=== PATIENT | male | born 1985 | race Caucasian/White ===

== ENCOUNTER 2023-04-26 12:01 | Inpatient (IN) ==
[2023-04-26] MEDS ORDERED: KETOROLAC TROMETHAMINE 15 MG/ML VIAL IV STA (12:18)
[2023-04-26] MEDS ORDERED: ONDANSETRON INJ 2 MG/ML 2 ML VIAL IV STA (12:18)
[2023-04-26] MEDS ORDERED: SODIUM CHLORIDE 0.9% 1,000 ML IV STA (12:18)
[2023-04-26] MEDS ORDERED: FAMOTIDINE 20MG IV PUSH 20 MG/5 ML SYR IV STA (12:28)
--- NOTE | 2023-04-26 12:28 | Emergency Department Note ---
Impression & Plan Acute upper abdominal pain, Acute cholecystitis, Vomiting, Leukocytosis, Gall stone ED Provider Note NAME: LAUREN [id number] MARIALUISA AGE: 37 SEX: M : 1985 ARRIVES VIA: Walk-In INFORMANT: [Patient] ED PROVIDER(S): [Vernon Larsen MD] CHIEF COMPLAINT: Abdominal pain HISTORY OF PRESENT ILLNESS: The patient is a 37-year-old male states that last night before he went to bed he began experiencing some pain in the upper back and then his upper abdomen. Patient vomited a few times. This morning, he woke up with the same pain and again was vomiting. The pain is worse in the right upper quadrant especially to take a breath. He has not had fever, cough or congestion. No urinary complaints or diarrhea. He went to the [facility] and was given a shot of Phenergan, he really has not had much relief. He was sent to the hospital for evaluation. He has no history of anything like this previous, he has never had any abdominal surgeries. He takes no medications. PMHx/PSHx/Social Hx: See Below PHYSICAL EXAM: GENERAL: Patient is in no acute distress. HEENT: No acute trauma, normocephalic atraumatic, mucous membranes moist, no nasal congestion. NECK: No stridor, no adenopathy, no meningismus, trachea is midline. LUNGS: Clear to auscultation bilaterally, no wheeze, no rhonchi, breath sounds equal. HEART: Without murmurs gallops or rubs, regular rate and rhythm. ABDOMEN: Soft, patient is tender diffusely but mostly in the right upper quadrant. There is some guarding in the right upper quadrant. No abdominal distention. EXTREMITIES: No cyanosis, full range of motion of all the joints without pain or difficulty. NEUROLOGIC: Oriented x 3, no acute motor or sensory deficits, no focal weakness. SKIN: No jaundice, no diaphoresis. Back: No flank discomfort to percussion. DIFFERENTIAL DIAGNOSIS: Biliary colic, acute cholecystitis, pancreatitis, renal colic, appendicitis, gastritis or ulcer, among others. EMERGENCY DEPARTMENT PROCEDURES: MEDICAL DECISION MAKING: There is a moderate leukocytosis, this could be consistent with infection. There was a normal hemoglobin and platelet count. No renal failure or significant electrolyte abnormality. Bilirubin was elevated at 1.7, the remaining liver enzymes were unremarkable. Lipase did not show any findings of pancreatitis. Urinalysis showed some dehydration, no infection. COVID test returned negative. ECG showed a normal sinus rhythm, no ischemia or dysrhythmia. Abdominal and pelvis CT suggested acute cholecystitis. Gallbladder ultrasound showed acute cholecystitis without rupture. There was a gallstone in the gallbladder neck. On exam, the patient was tender in the upper abdomen, especially in the right upper quadrant. The patient received IV saline, 2 L. He was given IV Zosyn for antibiotic coverage. He received IV Zofran and IV morphine. He was given IV Toradol and IV Pepcid. The patient does feel improved. He has findings of acute cholecystitis on his imaging. I did speak with general surgery, the patient is not in need of an emergent surgical procedure today. They recommended IV antibiotics, hydration, medical admission. I spoke with the patient and guards. I spoke with case management. The on-call hospitalist was consulted. Prior/Outside records/notes reviewed: None. ECG per my interpretation: Indication was upper abdominal pain. The ECG shows a normal sinus rhythm with a rate of 76. There is some baseline artifact. There is no ST elevation, no PVCs. The QTc is 459. Imaging/x-ray results per my interpretation: Chronic Medical/Social conditions affecting care: Incarceration. Care/Management discussed with: General surgery, Dr. Dave. Case management and the on-call hospitalist. Level of care consideration(s): After review of the information above and other included data: --I believe the patient requires escalation of care to admission DISPOSITION: Admission with surgical consult Past Med/Surg History Medical History No significant medical problems Social History Smoking Status: Never smoker Feels Safe at Home: Yes Allergies Allergies Allergy/AdvReac Type Severity Reaction Status Date / Time No Known Allergies Allergy Unverified 04/26/23 16:05 Home Meds Home Medications Medication Instructions Recorded Confirmed aluminum-mag hydroxide-simethicone 30 ml PO DAILY 04/26/23 04/26/23 200 mg-200 mg-20 mg/5 mL oral susp (Christine-Lanta) promethazine 25 mg/mL injection 25 mg IM DAILY 04/26/23 04/26/23 syringe Results & Data (ED) Vital Signs Vital Signs - 24 hr 04/26/23 12:03 04/26/23 12:38 04/26/23 12:38 Temperature 36.6 C Temperature Source Temporal Artery Scan Pulse Rate 85 65 Pulse Rate [Apical] 65 Respiratory Rate 20 20 20 Respiratory Effort / Characteristics Non-Labored Non-Labored Spontaneous Respiratory Depth Normal Normal Respiratory Pattern Regular Blood Pressure 130/82 Blood Pressure [Right Arm] 134/81 Blood Pressure Mean 98 Blood Pressure Mean [Right Arm] 98 Blood Pressure Position [Right Arm] Semi-fowlers Pulse Oximetry 98 98 98 Oxygen Delivery Method Room Air Room Air Room Air Sepsis Recent Fever Within 48 Hours No Sepsis New/Unexplained Change in Mental Status N/A Sepsis Action Taken by Nursing No Action Required 04/26/23 13:03 04/26/23 15:28 Temperature Temperature Source Pulse Rate 67 Pulse Rate [Apical] 66 Respiratory Rate 16 Respiratory Effort / Characteristics Respiratory Depth Respiratory Pattern Blood Pressure Blood Pressure [Right Arm] 122/80 Blood Pressure Mean Blood Pressure Mean [Right Arm] 94 Blood Pressure Position [Right Arm] Pulse Oximetry 98 Oxygen Delivery Method Sepsis Recent Fever Within 48 Hours Sepsis New/Unexplained Change in Mental Status Sepsis Action Taken by Halfway Medications Current Medication List: was personally reviewed by me Laboratory Data Attestation: I reviewed the patient's lab results. 04/26/23 12:30 04/26/23 12:30 Lab Results 04/26/23 04/26/23 04/26/23 Range/Units 12:30 13:57 16:17 WBC 14.92 H (4.8-10.8) K/ul RBC 5.07 (4.70-6.10) M/uL Hgb 14.7 (14.0-18.0) g/dl Hct 43.4 (42.0-52.0) % MCV 85.6 (80.0-100.0) fL MCH 29.0 (25.0-34.0) pg MCHC 33.9 (32.0-36.0) g/dL RDW Std Deviation 38.0 (36.4-46.3) fL RDW Coeff of Naomie 12.2 (11.5-14.5) % Plt Count 169 (130-400) K/uL MPV 10.6 (9.4-12.4) fL Immature Gran % (Auto) 0.4 % Neut % (Auto) 86.5 % Lymph % (Auto) 6.1 % Sanders % (Auto) 6.8 % Eos % (Auto) 0.1 % Baso % (Auto) 0.1 % Neut # (Auto) 12.90 H (1.40-6.50) K/uL Lymph # (Auto) 0.91 L (1.20-3.40) K/uL Sanders # (Auto) 1.02 H (0.11-0.59) K/uL Eos # (Auto) 0.01 (0.00-0.50) K/uL Baso # (Auto) 0.02 (0.00-0.20) K/uL Immature Gran # (Auto) 0.06 (0.01-0.20) K/uL Sodium 136 (136-145) mmol/L Potassium 3.8 (3.5-5.1) mmol/L Chloride 101 (98-107) mmol/L Carbon Dioxide 25 (21-32) mmol/L Anion Gap 10 (3-11) BUN 11 (6-23) mg/dl Creatinine 0.68 (0.6-1.4) mg/dl Est Cr Clr Drug Dosing 161.5 ml/min Est GFR ( Amer) 143.4 ml/min Est GFR (Non-Af Amer) 123.7 ml/min BUN/Creatinine Ratio 16.2 (10-20) Glucose 100 H (70-99(Fasting)) mg/dl Calcium 8.9 (8.6-10.3) mg/dl Total Bilirubin 1.7 H (0.2-1.0) mg/dl AST 27 (13-39) U/L ALT 15 (7-52) U/L Alkaline Phosphatase 65 (34-104) U/L Total Protein 7.1 (6.0-8.3) gm/dl Albumin 4.6 (3.4-5.0) gm/dl Globulin 2.5 (2.5-4.0) gm/dl Albumin/Globulin Ratio 1.8 (0.9-2) Lipase 13 (11-82) U/L Urine Color Yellow Urine Appearance Clear (Clear) Urine pH 6.0 (4.5-7.5) Ur Specific [place] 1.042 H (1.000-1.030) Urine Protein Negative (Negative) Urine Glucose (UA) Negative (Negative) Urine Ketones 4+ H (Negative) Urine Blood Negative (Negative) Urine Nitrite Negative (Negative) Urine Bilirubin Negative (Negative) Urine Urobilinogen Negative (Negative) Ur Leukocyte Esterase Negative (Negative) SARS-CoV-2, RNA, NAAT NEGATIVE (NEGATIVE) Administered Medications Discontinued Medications Sodium Chloride (Nss) 1,000 mls @ 999 mls/hr IV .Q1H1M STA Stop: 04/26/23 13:18 Last Infusion: 04/26/23 13:54 Dose: Infused Documented By: Admin: 04/26/23 12:32 Dose: 999 mls/hr Documented By: AB Famotidine (Pepcid 20mg Iv Push) 20 mg in 5 mls @ 2.5 mls/min IV NOW STA Stop: 04/26/23 12:29 Last Admin: 04/26/23 12:32 Dose: 2.5 mls/min Documented By: AB Piperacillin Sod/Tazobactam Sod (Zosyn) 4.5 gm in 120 mls @ 240 mls/hr IV NOW ONE Stop: 04/26/23 14:02 Last Admin: 04/26/23 13:58 Dose: 240 mls/hr Documented By: AB Sodium Chloride (Nss) 1,000 mls @ 999 mls/hr IV .Q1H1M ONE Stop: 04/26/23 15:26 Last Admin: 04/26/23 14:58 Dose: 999 mls/hr Documented By: CHAKA Ioversol (Optiray 320 500ml) 90 ml IV ONCE ONE Stop: 04/26/23 13:29 Last Admin: 04/26/23 13:29 Dose: 90 ml Documented By: FRANCK Ketorolac Tromethamine (Ketorolac Tromethamine 15 Mg/Ml Vial) 15 mg IV NOW STA Stop: 04/26/23 12:19 Last Admin: 04/26/23 12:32 Dose: 15 mg Documented By: Morphine Sulfate (Morphine Sulfate 2 Mg/Ml Carp) 2 mg IV NOW STA Stop: 04/26/23 14:27 Last Admin: 04/26/23 14:57 Dose: 2 mg Documented By: CHAKA Ondansetron HCl (Ondansetron Inj 2 Mg/Ml 2 Ml Vial) 4 mg IV NOW STA Stop: 04/26/23 12:19 Last Admin: 04/26/23 12:32 Dose: 4 mg Documented By: AB Imaging Data Radiologist's Impression: Abdomen/Pelvis CT 04/26/23 12:19 CT abd pelvis IV con only CLINICAL HISTORY: rlq pain TECHNIQUE: Helical axial images of the abdomen and pelvis were obtained and displayed. Automated dose lowering techniques and/or adjustment according to patient size were utilized for this exam. This exam was performed with intravenous contrast. CT DOSE: 963.05 mGy.cm COMPARISON: None available at the time of this dictation. FINDINGS: Lower chest: No acute abnormality. Liver: Unremarkable. No focal lesions are seen. Gallbladder and biliary tree: Prominence of the gallbladder wall with hyperdense gallbladder contents. The gallbladder wall appears dilated but difficult to measure. There is a 11 x 18 mm nodular density adjacent to the gallbladder. No intra- or extrahepatic biliary ductal dilation. Pancreas: Unremarkable, no focal lesions. Spleen: Splenule is incidentally noted. Adrenals: Unremarkable. Kidneys and ureters: Unremarkable. Bladder: Unremarkable. Reproductive organs: Prostatic calcifications are seen which may represent prior hemorrhage or granulomatous disease. Bowel: The appendix is not well-visualized, however no secondary signs for appendicitis are seen. Lymph nodes Retroperitoneal: Unremarkable. Pelvic: Unremarkable. Mesenteric: Unremarkable. Peritoneum: Normal. Vessels: Unremarkable. Abdominal wall: Unremarkable. Bones: Unremarkable. IMPRESSION: Findings are concerning for acute cholecystitis, possibly acalculous cholecystitis with gallbladder sludge. Attention on gallbladder ultrasound which has already been ordered. Adjacent nodular density may represent a pema hepatis lymph node, dropped stone cannot be entirely excluded. ACT 112: Negative or not required by law. Electronically signed by: Goyo Leach M.D. 04/26/2023 2:13 PM Gallbladder Ultrasound 04/26/23 12:26 US gallbladder CLINICAL HISTORY: ruq pain TECHNIQUE: Multiple real-time sonographic images of the right upper quadrant were obtained. Comparison: Comparison is made to CT abdomen 04/26/2023 FINDINGS: The liver is diffusely homogenous with normal contour and echogenicity. No focal mass lesions are seen. No intrahepatic ductal dilatation is seen. A stone is in the gallbladder neck measuring 2.6 cm. There is prominent gallbladder heterogeneous contents likely representing sludge. Gallbladder wall measures 9 mm. A sonographic Livingston's sign was elicited by the hay rake operator. The common duct measures 0.4 cm in diameter at the level of the hepatic artery. The visualized portions of the pancreas appear normal. The right kidney shows normal echogenicity, cortical thickness and renal contour. The right kidney shows no evidence of hydronephrosis or mass. No ascites or free fluid is seen in Gaming's pouch. IMPRESSION: Findings compatible with acute cholecystitis with a stone in the gallbladder neck and gallbladder sludge. No gallbladder perforation was ultrasonically visualized. ACT 112: Negative or not required by law. Electronically signed by: Goyo Leach M.D. 04/26/2023 3:36 PM Discharge Plan Visit Data Chief Complaint: Abdominal Pain Stated Complaint: ABD PAIN ED Provider: Vernon Larsen Discharge Problem: Acute upper abdominal pain, Acute cholecystitis, Vomiting, Leukocytosis, Gall stone Patient Disposition: Admitted As Inpatient Condition: Fair Forms Stand Alone Forms: [facility] [place] [employer] Prescriptions Prescriptions: No Action alum-mag hydroxide-simeth [Christine-Lanta] 200-200-20 mg/5 mL Suspension 30 ml PO DAILY Rx Instructions: administer between meals and at bedtime promethazine 25 mg/mL Syringe 25 mg IM DAILY Referrals Referrals: PCP,NO [Physician] - Discharge Problem: Vomiting Qualifiers: Vomiting type: unspecified Nausea presence: with nausea Qualified Code(s): R 11.2 - Nausea with vomiting, unspecified Leukocytosis Qualifiers: Leukocytosis type: unspecified Qualified Code(s): D72.829 - Elevated white blood cell count, unspecified Gall stone Qualifiers: Cholecystitis presence: with cholecystitis Cholecystitis acuity: acute Biliary obstruction: without biliary obstruction Qualified Code(s): K80.00 - Calculus of gallbladder with acute cholecystitis without obstruction
[2023-04-26 13:09] LABS: Basophils # (auto) 0.02 K/uL (0.00-0.20); Basophils % (auto) 0.1 %; Eosinophils # (auto) 0.01 K/uL (0.00-0.50); Eosinophils % (auto) 0.1 %; Hematocrit (blood only) 43.4 % (42.0-52.0); Hemoglobin 14.7 g/dl (14.0-18.0); Immature Granulocytes # (auto) 0.06 K/uL (0.01-0.20); Immature Granulocytes % (auto) 0.4 %; Lymphocytes # (auto) 0.91 K/uL (1.20-3.40); Lymphocytes % (auto) 6.1 %; Mean Corpuscular Hgb Conc 33.9 g/dL (32.0-36.0); Mean Corpuscular Volume 85.6 fL (80.0-100.0); Mean Platelet Volume 10.6 fL (9.4-12.4); Monocytes # (auto) 1.02 K/uL (0.11-0.59); Monocytes % (auto) 6.8 %; Neutrophils % (auto) 86.5 %; Platelet Count 169 K/uL (130-400); RDW Coefficient of Variation 12.2 % (11.5-14.5); Red Blood Count 5.07 M/uL (4.70-6.10); White Blood Count 14.92 K/ul (4.8-10.8)
[2023-04-26 13:13] LABS: Albumin Globulin Ratio 1.8 (0.9-2); Albumin Level 4.6 gm/dl (3.4-5.0); BUN Creatinine Ratio 16.2 (10-20); Bilirubin,Total 1.7 mg/dl (0.2-1.0); Calcium 8.9 mg/dl (8.6-10.3); Creatinine Clr Calc Pharmacy 161.5 ml/min; Est GFR (African American) 143.4 ml/min; Est GFR (Non-African American) 123.7 ml/min; Globulin 2.5 gm/dl (2.5-4.0); Potassium 3.8 mmol/L (3.5-5.1); Total Protein 7.1 gm/dl (6.0-8.3)
[2023-04-26] MEDS ORDERED: OPTIRAY 320 500ml IV ONE (13:28)
[2023-04-26] MEDS ORDERED: PIPERACILLIN/TAZOBACTAM 4.5 GM/120 ML BAG IV ONE (13:33)
[2023-04-26 14:13] LABS: Appearance Urine Clear (Clear); Bilirubin Urine Negative (Negative); Blood Urine Negative (Negative); Color Urine Yellow; Glucose Urine UA Negative (Negative); Ketones Urine 4+ (Negative); Leukocyte Esterase Urine Negative (Negative); Nitrite Urine Negative (Negative); Protein Urine Negative (Negative); Specific Gravity Urine 1.042 (1.000-1.030); Urobilinogen Urine Negative (Negative)
--- NOTE | 2023-04-26 14:15 | CT Scan Report ---
CT abd pelvis IV con only CLINICAL HISTORY: rlq pain TECHNIQUE: Helical axial images of the abdomen and pelvis were obtained and displayed. Automated dose lowering techniques and/or adjustment according to patient size were utilized for this exam. This e xam was performed with intravenous contrast. CT DOSE: 963.05 mGy.cm COMPARISON: None available at the time of this dictation. FINDINGS: Lower chest: No acute abnormality. Liver: Unremarkable. No focal lesions are seen. Gallbladder and biliary tree: Prominence of the gallbladder wall with hyperdense gallbladder contents . The gallbladder wall appears dilated but difficult to measure. There is a 11 x 18 mm nodular densit y adjacent to the gallbladder. No intra- or extrahepatic biliary ductal dilation. Pancreas: Unremarkable, no focal lesions. Spleen: Splenule is incidentally noted. Adrenals: Unremarkable. Kidneys and ureters: Unremarkable. Bladder: Unremarkable. Reproductive organs: Prostatic calcifications are seen which may represent prior hemorrhage or granul omatous disease. Bowel: The appendix is not well-visualized, however no secondary signs for appendicitis are seen. Lymph nodes Retroperitoneal: Unremarkable. Pelvic: Unremarkable. Mesenteric: Unremarkable. Peritoneum: Normal. Vessels: Unremarkable. Abdominal wall: Unremarkable. Bones: Unremarkable. IMPRESSION: Findings are concerning for acute cholecystitis, possibly acalculous cholecystitis with gallbladder s ludge. Attention on gallbladder ultrasound which has already been ordered. Adjacent nodular density m ay represent a pema hepatis lymph node, dropped stone cannot be entirely excluded. ACT 112: Negative or not required by law. Electronically signed by: Goyo Leach M.D. 04/26/2023 2:13 PM
[2023-04-26] MEDS ORDERED: SODIUM CHLORIDE 0.9% 1,000 ML IV ONE (14:26)
[2023-04-26] MEDS ORDERED: MoRPHine SULFATE 2 MG/ML CARP IV PRN (14:26)
[2023-04-26] MEDS ORDERED: MoRPHine SULFATE 2 MG/ML CARP IV STA (14:26)
--- NOTE | 2023-04-26 15:38 | Ultrasound Report ---
US gallbladder CLINICAL HISTORY: ruq pain TECHNIQUE: Multiple real-time sonographic images of the right upper quadrant were obtained. Comparison: Comparison is made to CT abdomen 04/26/2023 FINDINGS: The liver is diffusely homogenous with normal contour and echogenicity. No focal mass lesions are see n. No intrahepatic ductal dilatation is seen. A stone is in the gallbladder neck measuring 2.6 cm . There is prominent gallbladder heterogeneous contents likely representing sludge. Gallbladder wall measures 9 mm. A sonographic Livingston's sign was elicited by the financial advisor trainee. The common duct measure s 0.4 cm in diameter at the level of the hepatic artery. The visualized portions of the pancreas nelsy ear normal. The right kidney shows normal echogenicity, cortical thickness and renal contour. The right kidney sh ows no evidence of hydronephrosis or mass. No ascites or free fluid is seen in Gaming's pouch. IMPRESSION: Findings compatible with acute cholecystitis with a stone in the gallbladder neck and gallbladder slu dge. No gallbladder perforation was ultrasonically visualized. ACT 112: Negative or not required by law. Electronically signed by: Goyo Leach M.D. 04/26/2023 3:36 PM
--- NOTE | 2023-04-26 16:04 | History & Physical Report ---
Date of Service April 26, 2023 Assessment & Plan (1) Acute cholecystitis: Plan: Patient presented with right upper quadrant abdominal pain, nausea and vomiting for 1 day Afebrile, normotensive and saturating well on room air CBC remarkable for leukocytosis Total bilirubin elevated to 1.7, LFTs within normal limits. BUN/creatinine within normal limits Urine positive for ketones CT abdomen pelvis personally reviewed; findings concerning for acute cholec ystitis. Right upper quadrant shows acute cholecystitis with a gallstone in gallbladder neck and gallbladder sludge Discussion was done with on-call surgeon; plan to be admitted to medical service with possible surgery tomorrow AM. Admit to medical floor We will start on D5 with normal saline with potassium. Started on ceftriaxone and Flagyl Pain control with IV Tylenol, oxycodone and morphine N.p.o. from midnight, clear liquid diet for now RCRI-0, class I risks. Patient is at average risk for postop complications. EKG as preop evaluation. DVT prophylaxisSCDs Full code Time spent evaluating patient, direct bedside care, chart review, placing orders, interpretation of diagnostic studies, discussion with consultants, patient, and family members, as well as other required patient management activities is 60 minutes Please note the above document was generated using voice recognition software. It may contain grammatical, syntax or spelling errors. Any formal questions or concerns about the content, text or information contained within the body of this dictation should be directly addressed to the provider for clarification History of Present Illness Chief Complaint: Upper quadrant abdominal pain for 1 day Primary Care Provider: THUAN Kelly Patient is a 37-year-old male with no known past medical history presented to the ED with right upper quadrant abdominal pain. Patient also reports nausea and vomiting for several times since then. Patient denies fever, chills, chest pain or shortness of breath. No prior history of abdominal surgeries or previous hospitalization. On presentation to the ED, patient was afebrile, normotensive and saturating well on room air CBC remarkable for leukocytosis Total bilirubin elevated to 1.7, LFTs within normal limits. BUN/creatinine within normal limits Urine positive for ketones CT abdomen pelvis personally reviewed; findings concerning for acute cholecystitis. Right upper quadrant shows acute cholecystitis with a gallstone in gallbladder neck and gallbladder sludge Discussion was done with on-call surgeon; plan to be admitted to medical service with possible surgery tomorrow AM. Past medical history; none Past surgical history; tendon repair on right hand. No abdominal medical history history Social history; ex-smoker, does not drink Family history; no pertinent family history Allergies Allergy/AdvReac Type Severity Reaction Status Date / Time No Known Allergies Allergy Unverified 04/26/23 16:05 Home Medications Medication Instructions Recorded Confirmed Type aluminum-mag hydroxide-simethicone 30 ml PO DAILY 04/26/23 04/26/23 History 200 mg-200 mg-20 mg/5 mL oral susp (Christine-Lanta) promethazine 25 mg/mL injection 25 mg IM DAILY 04/26/23 04/26/23 History syringe Past Med/Surg History Social History Smoking Status: Never smoker Feels Safe at Home: Yes Review of Systems Review of Systems: All systems reviewed & are unremarkable except as noted in Subjective Physical Exam Physical Exam: Constitutional: Alert oriented x3; not in distress Respiratory: normal respiratory effort, lungs clear to auscultation, no wheeze, rales, rhonchi. Normal insp/exp effort, no accessory muscle use Cardiovascular: RRR, no murmur, no edema Vessels: no JVD or carotid bruit Chest: normal inspection of chest Abdomen: Right upper quadrant tenderness present. Livingston sign present Musculoskeletal: no cyanosis or clubbing, extremities motor strength 5/5 Skin: no rashes, warm and dry normal turgor Neurologic: PERRL, EOMI, accommodation nl, no face palsy, no dysarthria CN's II- XI intact bilaterally and moves all extremities Psychiatric: A+Ox3, euthymic affect Results & Data Results & Data Vital Signs (Past 12 Hours) Vital Signs Temp Pulse Pulse Resp BP BP Pulse Ox 04/26/23 15:28 66 16 122/80 98 04/26/23 13:03 67 04/26/23 12:38 65 20 98 04/26/23 12:38 65 20 134/81 98 04/26/23 12:03 36.6 C 85 20 130/82 98 O2 Del Method 04/26/23 15:28 04/26/23 13:03 04/26/23 12:38 Room Air 04/26/23 12:38 Room Air 04/26/23 12:03 Room Air Laboratory Results Laboratory Results WBC 14.92 K/ul (4.8-10.8) H 04/26/23 12:30 RBC 5.07 M/uL (4.70-6.10) 04/26/23 12:30 Hgb 14.7 g/dl (14.0-18.0) 04/26/23 12:30 Hct 43.4 % (42.0-52.0) 04/26/23 12:30 MCV 85.6 fL (80.0-100.0) 04/26/23 12: MCH 29.0 pg (25.0-34.0) 04/26/23 12:30 MCHC 33.9 g/dL (32.0-36.0) 04/26/23 12:30 RDW Std Deviation 38.0 fL (36.4-46.3) 04/26/23 12:30 RDW Coeff of Naomie 12.2 % (11.5-14.5) 04/26/23 12: Plt Count 169 K/uL (130-400) 04/26/23 12: MPV 10.6 fL (9.4-12.4) 04/26/23 12:30 Immature Gran % (Auto) 0.4 % 04/26/23 12:30 Neut % (Auto) 86.5 % 04/26/23 12:30 Lymph % (Auto) 6.1 % 04/26/23 12:30 [place] % (Auto) 6.8 % 04/26/23 12:30 Eos % (Auto) 0.1 % 04/26/23 12:30 Baso % (Auto) 0.1 % 04/26/23 12:30 Neut # (Auto) 12.90 K/uL (1.40-6.50) H 04/26/23 12:30 Lymph # (Auto) 0.91 K/uL (1.20-3.40) L 04/26/23 12:30 [place] # (Auto) 1.02 K/uL (0.11-0.59) H 04/26/23 12:30 Eos # (Auto) 0.01 K/uL (0.00-0.50) 04/26/23 12:30 Baso # (Auto) 0.02 K/uL (0.00-0.20) 04/26/23 12:30 Immature Gran # (Auto) 0.06 K/uL (0.01-0.20) 04/26/23 12:30 Sodium 136 mmol/L (136-145) 04/26/23 12:30 Potassium 3.8 mmol/L (3.5-5.1) 04/26/23 12:30 Chloride 101 mmol/L (98-107) 04/26/23 12:30 Carbon Dioxide 25 mmol/L (21-32) 04/26/23 12:30 Anion Gap 10 (3-11) 04/26/23 12:30 BUN 11 mg/dl (6-23) 04/26/23 12:30 Creatinine 0.68 mg/dl (0.6-1.4) 04/26/23 12:30 Est Cr Clr Drug Dosing 161.5 ml/min 04/26/23 12:30 Est GFR ( Amer) 143.4 ml/min 04/26/23 12:30 Est GFR (Non-Af Amer) 123.7 ml/min 04/26/23 12:30 BUN/Creatinine Ratio 16.2 (10-20) 04/26/23 12:30 Glucose 100 mg/dl (70-99(Fasting)) H 04/26/23 12:30 Calcium 8.9 mg/dl (8.6-10.3) 04/26/23 12:30 Total Bilirubin 1.7 mg/dl (0.2-1.0) H 04/26/23 12:30 AST 27 U/L (13-39) 04/26/23 12:30 ALT 15 U/L (7-52) 04/26/23 12:30 Alkaline Phosphatase 65 U/L (34-104) 04/26/23 12:30 Total Protein 7.1 gm/dl (6.0-8.3) 04/26/23 12:30 Albumin 4.6 gm/dl (3.4-5.0) 04/26/23 12:30 Globulin 2.5 gm/dl (2.5-4.0) 04/26/23 12:30 Albumin/Globulin Ratio 1.8 (0.9-2) 04/26/23 12:30 Lipase 13 U/L (11-82) 04/26/23 12:30 Urine Color Yellow 04/26/23 13:57 Urine Appearance Clear (Clear) 04/26/23 13:57 Urine pH 6.0 (4.5-7.5) 04/26/23 13:57 Ur Specific [place] 1.042 (1.000-1.030) H 04/26/23 13:57 Urine Protein Negative (Negative) 04/26/23 13:57 Urine Glucose (UA) Negative (Negative) 04/26/23 13:57 Urine Ketones 4+ (Negative) H 04/26/23 13:57 Urine Blood Negative (Negative) 04/26/23 13:57 Urine Nitrite Negative (Negative) 04/26/23 13:57 Urine Bilirubin Negative (Negative) 04/26/23 13:57 Urine Urobilinogen Negative (Negative) 04/26/23 13:57 Ur Leukocyte Esterase Negative (Negative) 04/26/23 13:57 Impressions Abdomen/Pelvis CT 04/26/23 12:19 CT abd pelvis IV con only CLINICAL HISTORY: rlq pain TECHNIQUE: Helical axial images of the abdomen and pelvis were obtained and displayed. Automated dose lowering techniques and/or adjustment according to patient size were utilized for this exam. This exam was performed with intravenous contrast. CT DOSE: 963.05 mGy.cm COMPARISON: None available at the time of this dictation. FINDINGS: Lower chest: No acute abnormality. Liver: Unremarkable. No focal lesions are seen. Gallbladder and biliary tree: Prominence of the gallbladder wall with hyperdense gallbladder contents. The gallbladder wall appears dilated but difficult to measure. There is a 11 x 18 mm nodular density adjacent to the gallbladder. No intra- or extrahepatic biliary ductal dilation. Pancreas: Unremarkable, no focal lesions. Spleen: Splenule is incidentally noted. Adrenals: Unremarkable. Kidneys and ureters: Unremarkable. Bladder: Unremarkable. Reproductive organs: Prostatic calcifications are seen which may represent prior hemorrhage or granulomatous disease. Bowel: The appendix is not well-visualized, however no secondary signs for appendicitis are seen. Lymph nodes Retroperitoneal: Unremarkable. Pelvic: Unremarkable. Mesenteric: Unremarkable. Peritoneum: Normal. Vessels: Unremarkable. Abdominal wall: Unremarkable. Bones: Unremarkable. IMPRESSION: Findings are concerning for acute cholecystitis, possibly acalculous cholecystitis with gallbladder sludge. Attention on gallbladder ultrasound which has already been ordered. Adjacent nodular density may represent a pema hepatis lymph node, dropped stone cannot be entirely excluded. ACT 112: Negative or not required by law. Electronically signed by: Goyo Leach M.D. 04/26/2023 2:13 PM Gallbladder Ultrasound 04/26/23 12:26 US gallbladder CLINICAL HISTORY: ruq pain TECHNIQUE: Multiple real-time sonographic images of the right upper quadrant were obtained. Comparison: Comparison is made to CT abdomen 04/26/2023 FINDINGS: The liver is diffusely homogenous with normal contour and echogenicity. No focal mass lesions are seen. No intrahepatic ductal dilatation is seen. A stone is in the gallbladder neck measuring 2.6 cm. There is prominent gallbladder heterogeneous contents likely representing sludge. Gallbladder wall measures 9 mm. A sonographic Livingston's sign was elicited by the campus recruiting coordinator. The common duct measures 0.4 cm in diameter at the level of the hepatic artery. The visualized portions of the pancreas appear normal. The right kidney shows normal echogenicity, cortical thickness and renal contour. The right kidney shows no evidence of hydronephrosis or mass. No ascites or free fluid is seen in Gaming's pouch. IMPRESSION: Findings compatible with acute cholecystitis with a stone in the gallbladder neck and gallbladder sludge. No gallbladder perforation was ultrasonically visualized. ACT 112: Negative or not required by law. Electronically signed by: Goyo Leach M.D. 04/26/2023 3:36 PM
[2023-04-26] MEDS ORDERED: ACETAMINOPHEN 1,000 MG/100 ML VIAL IV PRN (18:07)
[2023-04-26] MEDS: metroNIDAZOLE 500 MG/100 ML BAG IV SCH (18:36)
[2023-04-26] MEDS: cefTRIAXone SODIUM 2,000 MG in DEXTROSE 5 % MINI-B 50 ML IV SCH (18:42)
[2023-04-26] MEDS: D5NSS + 20MEQ KCL 20 MEQ/1,000 ML BAG IV SCH (19:24)
[2023-04-26] MEDS: oxyCODONE HCL IR 5 MG TAB (IMMEDIATE RELEASE) PO PRN (20:08)
--- NOTE | 2023-04-26 20:22 | Surgery Consultation ---
Date of Consultation April 26, 2023 Assessment & Plan (1) Acute cholecystitis: Patient has been admitted on the hospital service. From surgical perspective we recommend proceeding as follows: Provide analgesics Provide antiemetics The patient has been started on antibiotics in the form of Rocephin and Flagyl which should continue IV fluids to be provided for hydration The patient may have clear liquids this evening and he will be n.p.o. after midnight We have tentatively planned for the patient to undergo a cholecystectomy with Dr. Dave on 04/27/2023, but this procedure will be pending availability of the OR. We will follow serial labs Additional recommendations be forthcoming based on operative findings and the patient's postoperative recovery thereafter Utilize SCDs only for DVT prevention, no chemical means due to planned surgery Supervising Physician Co-Signing Physician Notes d/w Henri Santo, labs and imaging reviewed, agree with above. 37 y/o incarcerated male with cholecystitis, admitted to medicine. given degree of inflammation, will attempt surgery tomorrow, but if no space available will wait to Sunday. History of Present Illness Reason for Consultation: Cholecystitis Attending Physician: Kemal Siddiqi MD History of Present Illness This is a 37-year-old male who is currently incarcerated. The patient notes that he presented to the emergency department today secondary to abdominal pain in the right upper quadrant. He notes the pain has been present for approximately 24 hours and was unrelated to meals. He notes that the pain does not radiate. He notes that the pain is improved with medicines administered in the emergency department and it is worse with deep breaths. Patient says he has never had pain like this before and specifically [place] any postprandial pain in the past several weeks to months. With his symptomatology he has had nausea and vomiting and a low-grade temperature of 99.6. He has never had any abdominal surgeries in the past. I question the patient on activities of daily living and past medical history. He notes that he does not get chest pain or shortness of breath with his typical daily activities. He also notes he is a non-smoker and has no family history of coronary artery disease. Since arrival to the hospital patient has had labs and imaging which) reviewed. CT scan of the abdomen pelvis showed findings that were concerning for acute cholecystitis. Patient was noted to have prominence of the gallbladder with hyperdense material within the gallbladder. The gallbladder wall did appear dilated. There is an 11 x 18 mm nodular density adjacent to the gallbladder with no biliary ductal dilatation. This nodular density was felt to potentially represent a pema hepatis lymph node. A gallbladder ultrasound was ultimately performed that showed findings compatible with acute cholecystitis as the gallbladder wall was thickened at 9 mm. There is no intrahepatic biliary ductal dilatation. There is a gallstone noted in the gallbladder neck measuring 2.6 cm. Labs include a CBC her white blood cell count was elevated at 14.9. Hemoglobin and hematocrit along with the platelet count were normal. Chemistry profile showed sodium and potassium along with the BUN and creatinine were normal. Patient's bilirubin is elevated at 1.7, but his transaminases, alkaline phosphatase, and lipase were nonelevated. Urinalysis was not indicative of infection. An MRSA nasal swab was negative. A COVID test was negative. At the time of my interview the patient was resting comfortably in bed and he was in no distress. Concerning past medical history he denies any medical problems Concerning past surgical history he denies any prior surgeries Concerning social history he is a non-smoker Concerning family history he denies family history of coronary artery disease Allergies Allergy/AdvReac Type Severity Reaction Status Date / Time No Known Allergies Allergy Unverified 04/26/23 16:05 Home Medications Medication Instructions Recorded Confirmed Type aluminum-mag hydroxide-simethicone 30 ml PO DAILY 04/26/23 04/26/23 History 200 mg-200 mg-20 mg/5 mL oral susp (Christine-Lanta) promethazine 25 mg/mL injection 25 mg IM DAILY 04/26/23 04/26/23 History syringe Patient History Medical History No significant medical problems Social History Smoking Status: Never smoker Hx Alcohol Use: No Hx Substance Use: No Preferred Language: Amharic [employer] Required: No Beliefs That Will Affect Care: None Current Living Situation Comment: inmate Feels Safe at Home: Yes Review of Systems Constitutional: + fever; no chills Ear, Nose, Mouth, Throat: no hearing loss Respiratory: no cough and no dyspnea Cardiovascular: no chest pain Gastrointestinal: as per Subjective / HPI Genitourinary: no dysuria Musculoskeletal: no back pain Integumentary: no rash Neurologic: no localized weakness Physical Exam Constitutional: WD/WN, vitals as above Eyes: + anicteric sclerae ENMT: Sublingual jaundice is absent Neck: trachea midline Respiratory: normal respiratory effort; no respiratory distress and no labored breathing Cardiovascular: Rate/Rhythm: regular rate and regular rhythm Gastrointestinal (Abdomen): Abdomen is soft and nondistended. There is no rebound tenderness or guarding but the patient did have pain with palpation in the right upper quadrant with a positive [place] sign. Musculoskeletal: No calf tenderness Skin: no rashes Neurologic: moves all extremities Psychiatric: A+Ox3, euthymic affect Results & Data Vital Signs (Past 12 Hours) Vital Signs Temp Pulse Pulse Pulse Resp BP BP 04/26/23 18:18 37.4 C 80 18 129/71 04/26/23 17:26 79 04/26/23 15:28 66 16 122/80 04/26/23 13:03 67 04/26/23 12:38 65 20 04/26/23 12:38 65 20 134/81 04/26/23 12:03 36.6 C 85 20 130/82 Pulse Ox O2 Del Method 04/26/23 18:18 98 Room Air 04/26/23 17:26 04/26/23 15:28 98 04/26/23 13:03 04/26/23 12:38 98 Room Air 04/26/23 12:38 98 Room Air 04/26/23 12:03 98 Room Air PG Care Time/CCT Total # of Minutes Spent Total Time Spent with Patient: Total time spent is greater than 50% in coordination of care (as documented) at patient's floor/unit and/or counseling patient: Coding Level of Care Code 50328 IN/OBS CONSULT LVL 5,80M Diagnoses Acute cholecystitis K81.0
[2023-04-26] MEDS: ONDANSETRON INJ 2 MG/ML 2 ML VIAL IV PRN (21:24)
[2023-04-26] MEDS: MoRPHine SULFATE 2 MG/ML CARP IV PRN (21:24)
[2023-04-27] MEDS: metroNIDAZOLE 500 MG/100 ML BAG IV SCH ×3 (02:06→19:12)
[2023-04-27] MEDS: oxyCODONE HCL IR 5 MG TAB (IMMEDIATE RELEASE) PO PRN (02:08)
[2023-04-27] MEDS: D5NSS + 20MEQ KCL 20 MEQ/1,000 ML BAG IV SCH ×2 (05:49→18:38)
[2023-04-27] MEDS: ONDANSETRON INJ 2 MG/ML 2 ML VIAL IV PRN (06:07)
[2023-04-27] MEDS: MoRPHine SULFATE 2 MG/ML CARP IV PRN (06:07)
--- NOTE | 2023-04-27 06:17 | Surgery Progress Note ---
Date of Service April 27, 2023 Assessment & Plan (1) Acute cholecystitis: Plan: Patient has been admitted on the hospital service. From surgical perspective we recommend proceeding as follows: Continue analgesics Continue antiemetics Continue antibiotics in the form of Rocephin and Flagyl Continue IV fluids N.p.o. status has been implemented at midnight last night which should continue Check repeat labs when available The patient has been added to the OR schedule for today with Dr. Dave for a cholecystectomy. Definite plan for surgery will depend upon availability of the OR space/staff Additional recommendations be forthcoming based on operative findings and the patient's postoperative recovery thereafter Utilize SCDs only for DVT prevention, no chemical means due to planned surgery Admission and Anticipated Discharge Date Admission Date: April 26, 2023 Supervising Physician Co-Signing Physician Notes Patient seen and examined, labs and imaging reviewed, agree with above. 37-year-old incarcerated male admitted with cholecystitis. Feels little better than upon admission but still has right upper quadrant pain. On exam he is currently afebrile with a slightly diaphoretic, with stable vitals. His abdomen is soft, tender to palpation right upper quadrant with positive Livingston's. WBC slightly down. LFTs slightly up, may be secondary to significant cholecystitis. plan for robotic assisted laparoscopic cholecystectomy with possible cholangiogram risks discussed to include but not limited to bleeding, infection, retained stone, bile leak, open surgery, damage to surrounding structures including bile duct, need for future or more extensive surgery, failure to treat symptoms, and risks of anesthesia. Subjective Patient is currently resting in bed. He denies any fevers, shakes, or chills. No nausea or vomiting noted. The patient continues to have pain in the right upper quadrant of his abdomen. Physical Exam Gastrointestinal (Abdomen): Abdomen is soft, nonrigid, nondistended. Patient continues to have pain with palpation in the right upper quadrant. Results & Data Vital Signs (Past 12 Hours) Vital Signs Temp Pulse Resp BP Pulse Ox O2 Del Method 04/26/23 22:36 37.2 C 85 18 118/67 94 Room Air 04/26/23 18:18 37.4 C 80 18 129/71 98 Room Air PG Care Time/CCT Total # of Minutes Spent Total Time Spent with Patient: Total time spent is greater than 50% in coordination of care (as documented) at patient's floor/unit and/or counseling patient: Coding Level of Care Code 44276 SUB INP/OBS CARE Diagnoses Acute cholecystitis K81.0
[2023-04-27 07:00] LABS: Basophils # (auto) 0.02 K/uL (0.00-0.20); Basophils % (auto) 0.2 %; Eosinophils # (auto) 0.02 K/uL (0.00-0.50); Eosinophils % (auto) 0.2 %; Hematocrit (blood only) 41.5 % (42.0-52.0); Immature Granulocytes # (auto) 0.06 K/uL (0.01-0.20); Immature Granulocytes % (auto) 0.5 %; Lymphocytes % (auto) 6.8 %; Mean Corpuscular Hemoglobin 28.9 pg (25.0-34.0); Mean Corpuscular Hgb Conc 33.7 g/dL (32.0-36.0); Mean Corpuscular Volume 85.7 fL (80.0-100.0); Mean Platelet Volume 10.7 fL (9.4-12.4); Monocytes # (auto) 1.16 K/uL (0.11-0.59); Monocytes % (auto) 8.8 %; Neutrophils # (auto) 11.05 K/uL (1.40-6.50); Neutrophils % (auto) 83.5 %; Platelet Count 149 K/uL (130-400); RDW Coefficient of Variation 12.5 % (11.5-14.5); Red Blood Count 4.84 M/uL (4.70-6.10); White Blood Count 13.21 K/ul (4.8-10.8)
[2023-04-27 07:14] LABS: Bilirubin Direct 0.6 mg/dl (0-0.2)
[2023-04-27 07:19] LABS: Albumin Globulin Ratio 1.6 (0.9-2); Albumin Level 3.7 gm/dl (3.4-5.0); BUN Creatinine Ratio 13.4 (10-20); Bilirubin,Total 2.1 mg/dl (0.2-1.0); Calcium 8.3 mg/dl (8.6-10.3); Creatinine Clr Calc Pharmacy 163.9 ml/min; Est GFR (African American) 144.3 ml/min; Est GFR (Non-African American) 124.5 ml/min; Globulin 2.3 gm/dl (2.5-4.0); Potassium 4.1 mmol/L (3.5-5.1)
[2023-04-27 07:27] LABS: INR 1.2 (0.9-1.1); Prothrombin Time 13.2 Seconds (9.0-12.0)
[2023-04-27] MEDS ORDERED: INDOCYANINE GREEN 25 MG VIAL INJ ONE (07:31)
--- NOTE | 2023-04-27 08:17 | Anesthesiology Consultation ---
Date of Service April 27, 2023 Assessment & Plan Chart Review Chart Review: Acceptable Risk for Surgery and Patient NOT seen in Pre Admission Testing Consults Requested none ASA ASA2 Proposed Anesthesia Anesthesia Type: General History Surgery Operation Date: 04/27/23 07:00 Proposed Procedures p Robotic Laparoscopic Cholecystectomy - Tripp Dave DO, FACS Height/Weight Height: 5 ft 11 in Weight: 90.2 kg Allergies Allergy/AdvReac Type Severity Reaction Status Date / Time No Known Allergies Allergy Unverified 04/26/23 16:05 Medications Home Medications Medication Instructions Recorded Confirmed Last Taken aluminum-mag hydroxide-simethicone 30 ml PO DAILY 04/26/23 04/26/23 04/26/23 200 mg-200 mg-20 mg/5 mL oral susp (Christine-Lanta) promethazine 25 mg/mL injection 25 mg IM DAILY 04/26/23 04/26/23 04/26/23 syringe Active Medications Generic Name Dose Route Start Last Admin Trade Name Freq PRN Reason Stop Dose Admin Ceftriaxone Sodium 2,000 mg/ 50 mls @ 100 mls/hr 04/26/23 19:00 04/26/23 19:35 Dextrose IV 05/06/23 18:59 Infused Q24H EL[facility]ETH Infusion Protocol Metronidazole 500 mg in 100 mls @ 100 mls/hr 04/26/23 19:00 04/27/23 03:14 Flagyl IV 05/06/23 18:59 Infused Q8H [facility] Infusion Protocol Potassium Chloride/Dextrose/Sod Cl 20 meq in 1,000 mls @ 100 mls/hr 04/26/23 18:30 04/27/23 05:49 D5nss + 20meq Kcl IV 05/26/23 18:29 100 mls/hr .Q10H ELIZABETH Administration Protocol Morphine Sulfate 2 mg 04/26/23 18:07 04/27/23 06:07 Morphine Sulfate 2 Mg/Ml Carp IV 05/10/23 18:06 2 mg Q6H PRN Administration Pain Ondansetron HCl 4 mg 04/26/23 18:07 04/27/23 06:07 Ondansetron Inj 2 Mg/Ml 2 Ml Vial IV 05/26/23 18:06 4 mg Q6H PRN Administration Nausea And Vomiting Oxycodone HCl 5 mg 04/26/23 18:07 04/27/23 02:08 Oxycodone Hcl Ir 5 Mg Tab (Immediate Release) PO 05/10/23 18:06 5 mg Q6H PRN Administration Pain Past Medical History Medical History No significant medical problems increased LFT's Exercise / Class Metabolic Activity II 4-5 Yardwork/Stairs/Walk up hill Past Anesthesia History No Hx of Anesthesia Complications and No Family Hx of Anesthesia Complications History of PONV No Hx of PONV and No Hx of Motion Sickness Social History Smoking Status: Never smoker Hx Alcohol Use: No Hx Substance Use: No Physical Exam Vital Signs Last Vital Signs Temp 37.1 C 04/27/23 07:16 Pulse 86 04/27/23 07:16 Resp 16 04/27/23 07:16 BP 115/69 04/27/23 07:16 Pulse Ox 95 04/27/23 07:16 O2 Del Method Room Air 04/27/23 07:16 Testing Laboratory Results 04/27/23 06:21 04/27/23 06:21 PT 13.2 Seconds (9.0-12.0) H 04/27/23 06:21 INR 1.2 (0.9-1.1) H 04/27/23 06:21 Urine Color Yellow 04/26/23 13:57 Urine Appearance Clear (Clear) 04/26/23 13:57 Urine pH 6.0 (4.5-7.5) 04/26/23 13:57 Ur Specific [place] 1.042 (1.000-1.030) H 04/26/23 13:57 Urine Protein Negative (Negative) 04/26/23 13:57 Urine Glucose (UA) Negative (Negative) 04/26/23 13:57 Urine Ketones 4+ (Negative) H 04/26/23 13:57 Urine Nitrite Negative (Negative) 04/26/23 13:57 Ur Leukocyte Esterase Negative (Negative) 04/26/23 13:57 Electrocardiogram Date: 04/26/23 Findings: + NSR @ (@ 76;Low voltage QRS)
--- NOTE | 2023-04-27 09:25 | Electrocardiogram Report ---
Test Reason : Blood Pressure : / mmHG Vent. Rate : 076 BPM Atrial Rate : 076 BPM P-R Int : 158 ms QRS Dur : 088 ms QT Int : 408 ms P-R-T Axes : 059 052 044 degrees QTc Int : 459 ms Normal sinus rhythm Low voltage QRS Borderline ECG No previous ECGs available Confirmed by Renny Dubose ([id number]) on 04/27/2023 9:24:38 AM Referred By: Leticia LAROSE Confirmed By:Renny Dubose
[2023-04-27] MEDS ORDERED: MoRPHine SULFATE 2 MG/ML CARP IV PRN (10:53)
[2023-04-27] MEDS ORDERED: BUPIVACAINE 0.5 % 5 MG/1 ML MPF 30ML VIAL ONE (11:19)
[2023-04-27] MEDS ORDERED: LACTATED RINGER'S 1,000 ML IV SCH (12:00)
[2023-04-27] MEDS ORDERED: NEOSTIGMINE METHYLSULFATE 1 MG/ML 10ML VIAL ONE (12:05)
[2023-04-27] MEDS ORDERED: DEXAMETHASONE SOD INJ 4 MG/ML VIAL ONE (12:05)
[2023-04-27] MEDS ORDERED: ONDANSETRON INJ 2 MG/ML 2 ML VIAL ONE (12:05)
[2023-04-27] MEDS ORDERED: LIDOCAINE 2% 2 ML VIAL/AMP(20MG/ML) INFIL ONE (12:05)
[2023-04-27] MEDS ORDERED: fentaNYL citrate PF 100 MCG/2 ML VIAL ONE (12:06)
[2023-04-27] MEDS ORDERED: MIDAZOLAM HCL 1 MG/ML 2ML VIAL ONE (12:06)
[2023-04-27] MEDS ORDERED: PROPOFOL IV EMULSION 10 MG/ML 20 ML VIAL IV ONE (12:06)
[2023-04-27] MEDS ORDERED: GLYCOPYRROLATE 0.2 MG/ML VIAL ONE (12:06)
[2023-04-27] MEDS ORDERED: ROCURONIUM BROMIDE 10 MG/ML 5 ML VIAL IV ONE (12:06)
[2023-04-27] MEDS ORDERED: ONDANSETRON INJ 2 MG/ML 2 ML VIAL IV PRN (12:27)
[2023-04-27] MEDS ORDERED: FLUMAZENIL 0.1 MG/1 ML 10 ML VIAL IV PRN (12:27)
[2023-04-27] MEDS ORDERED: HYDROmorphone INJ 1 MG/ML SYRINGE IV PRN (12:27)
[2023-04-27] MEDS ORDERED: PROMETHAZINE HCL 12.5 MG in SODIUM CHLORIDE 0.9% 50 ML IV PRN (12:27)
[2023-04-27] MEDS ORDERED: LABETALOL HCL IV 5 MG/ML 20ML IV PRN (12:27)
[2023-04-27] MEDS ORDERED: ePHEDrine sulfate 50 MG/ML AMP IV PRN (12:27)
[2023-04-27] MEDS ORDERED: fentaNYL citrate PF 100 MCG/2 ML VIAL IV PRN (12:27)
[2023-04-27] MEDS ORDERED: NALOXONE HCL 0.4 MG/1 ML VIAL/CARP IV PRN (12:27)
[2023-04-27] MEDS ORDERED: ATROPINE SULFATE 0.1 MG/ML 10ML SYR IV PRN (12:27)
[2023-04-27] MEDS ORDERED: SUGAMMADEX SODIUM 200 MG/2 ML VIAL IV ONE (12:41)
--- NOTE | 2023-04-27 14:31 | Hospitalist Progress Note ---
Date of Service April 27, 2023 Assessment & Plan (1) Acute cholecystitis: Plan: Patient presented with right upper quadrant abdominal pain, nausea and vomiting for 1 day Febrile to 37.9 C CBC remarkable for leukocytosis On admission, liver enzymes were not elevated. AST/ALT elevated today. Total bilirubin also elevated to 2.1. BUN/creatinine within normal limits Urine positive for ketones CT abdomen pelvis personally reviewed; findings concerning for acute cholecystitis. Right upper quadrant shows acute cholecystitis with a gallstone in gallbladder neck and gallbladder sludge Patient to undergo laparoscopic cholecystectomy by surgery today. Continue on D5 with normal saline with potassium. Continue on ceftriaxone and Flagyl Pain control with IV Tylenol, oxycodone and morphine DVT prophylaxisSCDs Full code Please note the above document was generated using voice recognition software. It may contain grammatical, syntax or spelling errors. Any formal questions or concerns about the content, text or information contained within the body of this dictation should be directly addressed to the provider for clarification Admission and Anticipated Discharge Date Admission Date: April 26, 2023 Subjective Patient seen and examined at bedside. He reports severe pain in right upper quadrant abdomen. He is also febrile. Review of Systems Review of Systems: All systems reviewed & are unremarkable except as noted in Subjective Physical Exam Physical Exam: Constitutional: Alert orient x 3, in significant distress due to pain. Respiratory: normal respiratory effort, lungs clear to auscultation, no wheeze, rales, rhonchi. Normal insp/exp effort, no accessory muscle use Cardiovascular: RRR, no murmur, no edema Vessels: no JVD or carotid bruit Chest: normal inspection of chest Abdomen: Right upper quadrant tenderness present. Livingston sign present Musculoskeletal: no cyanosis or clubbing, extremities motor strength 5/5 Skin: no rashes, warm and dry normal turgor Neurologic: PERRL, EOMI, accommodation nl, no face palsy, no dysarthria CN's II- XI intact bilaterally and moves all extremities Psychiatric: A+Ox3, euthymic affect Results & Data Results & Data Vital Signs (Past 12 Hours) Vital Signs Temp Pulse Pulse Resp BP Pulse Ox O2 Del Method 04/27/23 11:54 37.9 C H 93 H 16 127/78 96 Room Air 04/27/23 07:20 Room Air 04/27/23 07:16 37.1 C 86 16 115/69 95 Room Air Laboratory Results Laboratory Results WBC 13.21 K/ul (4.8-10.8) H 04/27/23 06:21 RBC 4.84 M/uL (4.70-6.10) 04/27/23 06:21 Hgb 14.0 g/dl (14.0-18.0) 04/27/23 06:21 Hct 41.5 % (42.0-52.0) L 04/27/23 06:21 MCV 85.7 fL (80.0-100.0) 04/27/23 06:21 MCH 28.9 pg (25.0-34.0) 04/27/23 06:21 MCHC 33.7 g/dL (32.0-36.0) 04/27/23 06:21 RDW Std Deviation 39.0 fL (36.4-46.3) 04/27/23 06:21 RDW Coeff of Naomie 12.5 % (11.5-14.5) 04/27/23 06:21 Plt Count 149 K/uL (130-400) 04/27/23 06:21 MPV 10.7 fL (9.4-12.4) 04/27/23 06:21 Immature Gran % (Auto) 0.5 % 04/27/23 06:21 Neut % (Auto) 83.5 % 04/27/23 06:21 Lymph % (Auto) 6.8 % 04/27/23 06:21 [place] % (Auto) 8.8 % 04/27/23 06:21 Eos % (Auto) 0.2 % 04/27/23 06:21 Baso % (Auto) 0.2 % 04/27/23 06:21 Neut # (Auto) 11.05 K/uL (1.40-6.50) H 04/27/23 06:21 Lymph # (Auto) 0.90 K/uL (1.20-3.40) L 04/27/23 06:21 [place] # (Auto) 1.16 K/uL (0.11-0.59) H 04/27/23 06:21 Eos # (Auto) 0.02 K/uL (0.00-0.50) 04/27/23 06:21 Baso # (Auto) 0.02 K/uL (0.00-0.20) 04/27/23 06:21 Immature Gran # (Auto) 0.06 K/uL (0.01-0.20) 04/27/23 06:21 PT 13.2 Seconds (9.0-12.0) H 04/27/23 06:21 INR 1.2 (0.9-1.1) H 04/27/23 06:21 Sodium 135 mmol/L (136-145) L 04/27/23 06:21 Potassium 4.1 mmol/L (3.5-5.1) 04/27/23 06:21 Chloride 105 mmol/L (98-107) 04/27/23 06:21 Carbon Dioxide 26 mmol/L (21-32) 04/27/23 06:21 Anion Gap 4 (3-11) 04/27/23 06:21 BUN 9 mg/dl (6-23) 04/27/23 06:21 Creatinine 0.67 mg/dl (0.6-1.4) 04/27/23 06:21 Est Cr Clr Drug Dosing 163.9 ml/min 04/27/23 06:21 Est GFR ( Amer) 144.3 ml/min 04/27/23 06:21 Est GFR (Non-Af Amer) 124.5 ml/min 04/27/23 06:21 BUN/Creatinine Ratio 13.4 (10-20) 04/27/23 06:21 Glucose 128 mg/dl (70-99(Fasting)) H 04/27/23 06:21 Calcium 8.3 mg/dl (8.6-10.3) L 04/27/23 06:21 Total Bilirubin 2.1 mg/dl (0.2-1.0) H 04/27/23 06:21 Direct Bilirubin 0.6 mg/dl (0-0.2) H 04/27/23 06:21 AST 143 U/L (13-39) H 04/27/23 06:21 ALT 204 U/L (7-52) H 04/27/23 06:21 Alkaline Phosphatase 66 U/L (34-104) 04/27/23 06:21 Total Protein 6.0 gm/dl (6.0-8.3) 04/27/23 06:21 Albumin 3.7 gm/dl (3.4-5.0) 04/27/23 06:21 Globulin 2.3 gm/dl (2.5-4.0) L 04/27/23 06:21 Albumin/Globulin Ratio 1.6 (0.9-2) 04/27/23 06:21 Lipase 23 U/L (11-82) 04/27/23 06:21 Urine Color Yellow 04/26/23 13:57 Urine Appearance Clear (Clear) 04/26/23 13:57 Urine pH 6.0 (4.5-7.5) 04/26/23 13:57 Ur Specific [place] 1.042 (1.000-1.030) H 04/26/23 13:57 Urine Protein Negative (Negative) 04/26/23 13:57 Urine Glucose (UA) Negative (Negative) 04/26/23 13:57 Urine Ketones 4+ (Negative) H 04/26/23 13:57 Urine Blood Negative (Negative) 04/26/23 13:57 Urine Nitrite Negative (Negative) 04/26/23 13:57 Urine Bilirubin Negative (Negative) 04/26/23 13:57 Urine Urobilinogen Negative (Negative) 04/26/23 13:57 Ur Leukocyte Esterase Negative (Negative) 04/26/23 13:57 Nasal Screen MRSA (PCR) Negative (Negative) 04/26/23 18:30 SARS-CoV-2, RNA, NAAT NEGATIVE (NEGATIVE) 04/26/23 16:17 Impressions Abdomen/Pelvis CT 04/26/23 12:19 CT abd pelvis IV con only CLINICAL HISTORY: rlq pain TECHNIQUE: Helical axial images of the abdomen and pelvis were obtained and displayed. Automated dose lowering techniques and/or adjustment according to patient size were utilized for this exam. This exam was performed with intravenous contrast. CT DOSE: 963.05 mGy.cm COMPARISON: None available at the time of this dictation. FINDINGS: Lower chest: No acute abnormality. Liver: Unremarkable. No focal lesions are seen. Gallbladder and biliary tree: Prominence of the gallbladder wall with hyperdense gallbladder contents. The gallbladder wall appears dilated but difficult to measure. There is a 11 x 18 mm nodular density adjacent to the gallbladder. No intra- or extrahepatic biliary ductal dilation. Pancreas: Unremarkable, no focal lesions. Spleen: Splenule is incidentally noted. Adrenals: Unremarkable. Kidneys and ureters: Unremarkable. Bladder: Unremarkable. Reproductive organs: Prostatic calcifications are seen which may represent prior hemorrhage or granulomatous disease. Bowel: The appendix is not well-visualized, however no secondary signs for appendicitis are seen. Lymph nodes Retroperitoneal: Unremarkable. Pelvic: Unremarkable. Mesenteric: Unremarkable. Peritoneum: Normal. Vessels: Unremarkable. Abdominal wall: Unremarkable. Bones: Unremarkable. IMPRESSION: Findings are concerning for acute cholecystitis, possibly acalculous cholecystitis with gallbladder sludge. Attention on gallbladder ultrasound which has already been ordered. Adjacent nodular density may represent a pema hepatis lymph node, dropped stone cannot be entirely excluded. ACT 112: Negative or not required by law. Electronically signed by: Goyo Leach M.D. 04/26/2023 2:13 PM Gallbladder Ultrasound 04/26/23 12:26 US gallbladder CLINICAL HISTORY: ruq pain TECHNIQUE: Multiple real-time sonographic images of the right upper quadrant were obtained. Comparison: Comparison is made to CT abdomen 04/26/2023 FINDINGS: The liver is diffusely homogenous with normal contour and echogenicity. No focal mass lesions are seen. No intrahepatic ductal dilatation is seen. A stone is in the gallbladder neck measuring 2.6 cm. There is prominent gallbladder heterogeneous contents likely representing sludge. Gallbladder wall measures 9 mm. A sonographic Livingston's sign was elicited by the flow machine operator. The common duct measures 0.4 cm in diameter at the level of the hepatic artery. The visualized portions of the pancreas appear normal. The right kidney shows normal echogenicity, cortical thickness and renal contour. The right kidney shows no evidence of hydronephrosis or mass. No ascites or free fluid is seen in Gaming's pouch. IMPRESSION: Findings compatible with acute cholecystitis with a stone in the gallbladder neck and gallbladder sludge. No gallbladder perforation was ultrasonically visualized. ACT 112: Negative or not required by law. Electronically signed by: Goyo Leach M.D. 04/26/2023 3:36 PM
--- NOTE | 2023-04-27 14:32 | Operative Report ---
PG Post Operative Report Pre & Post Diagnosis Operation Date: 04/27/23 07:00 Pre-Op Diagnosis: Acute Cholecystitis Post-Op Diagnosis: Acute Cholecystitis I identified the patient and participated in the time-out.: Yes Procedure Operation Date: 04/27/23 07:00 Actual Procedures p Robotic Assisted Laparoscopic Cholecystectomy(Not Applicable) - Tripp Dave DO, FACS Surgeon Tripp Dave DO, FACS Rehab Care Assistant None Estimated Blood Loss 25 Findings Consistent with Post-Op Diagnosis Gallbladder significantly inflamed and appeared gangrenous. Decompressed to allow for retraction. Critical view of safety obtained, cystic duct and artery doubly clipped and divided. Significantly thickened wall, liver bed fulgurated. 10 mm flat YOLIE drain placed in liver bed. Specimens Gallbladder Drains 10 mm YOLIE in liver bed Anesthesia Type General Complications none Disposition Accompanied Patient To Recovery: No Disposition: Recovery Room Indications 37-year-old incarcerated male with cholelithiasis and cholecystitis on imaging, plan for robotic cholecystectomy. The risks of the procedure were discussed, all questions were answered, and the patient agreed to proceed with surgery as planned. Description of Procedure The patient was properly identified, consented, and taken to the operating room where he was placed in the supine position. 2.5 mg of indocyanine green were administered IV approximately 45 min prior to the surgery. General endotracheal anesthesia was induced. SCDs and a safety belt were placed. Preoperative antibiotics were administered. The patient's abdomen was prepped and draped in the standard sterile fashion. A surgical timeout was performed and all parties were in agreement that this was the correct patient and procedure to be performed and we continued as planned. An incision was made just above the umbilicus and to the right of midline. Veress needle was inserted and saline drop test confirmed entry to the abdomen. The abdomen was insufflated with carbon dioxide which the patient tolerated incident. Veress needle was removed and the abdomen is entered using the Optiview technique and a 5 mm camera. The introducer was removed and the abdomen inspected. No damage from initial trocar placement or Veress needle placement was identified. There were no significant abnormalities to the 4 quadrants of the abdomen. 8 mm robotic ports were then placed, 1 on the right lower quadrant and 1 in the left upper quadrant. A 12 mm port was placed in the left upper quadrant. The patient was placed in reverse Trendelenburg position and rotated towards the left. The robot was then docked and the camera and robotic instruments were inserted. The gallbladder was severely inflamed and appeared gangrenous. The gallbladder was decompressed by creating a hole in the dome of the gallbladder and suctioning the contents. The dome of the gallbladder was grasped and retracted towards the left upper quadrant and the infundibulum was retracted toward the right lower quadrant revealing Calot's triangle. Peritoneal attachments were taken down with electrocautery and blunt dissection. The cystic duct and artery were circumferentially dissected. A window of safety was obtained showing the cystic duct entering the gallbladder with no aberrant structures noted. The ICG was not visualized on firefly in the cystic duct or gallbladder due to the severe cholecystitis. The cystic duct and artery were doubly clipped and divided. The gallbladder was then lifted off the gallbladder fossa with electrocautery. The right upper quadrant was irrigated and hemostasis was found to be good. The gallbladder was placed in an Endo Catch bag and removed through the 12 Bello of the port sites. The fascia and incision had to be extended to accommodate the large stone and severely inflamed gallbladder. A 10 mm flat YOLIE was placed in the liver bed and exited through the right lower quadrant port incision. This was secured in place with a 2-0 nylon suture. The instruments were removed and the robot was undocked. The trochars were removed and the abdomen was allowed to collapse. The skin of all ports was closed with 4-0 Monocryl subcuticular sutures, and a drain dressing was placed. Dermabond was placed over the wounds. The patient was extubated in the operating room and taken to the PACU where he recovered without apparent incident. All sponge, instrument and needle counts were correct at the conclusion of the procedure. The patient tolerated the procedure well. I attest to the content of the Intraoperative Record and any orders documented therein. Any exceptions are noted below.
--- NOTE | 2023-04-27 15:37 | Anesthesiology Progress Note ---
Date of Service April 27, 2023 Anesthesia Post Procedure Vital Signs Vital Signs: Temp Pulse Pulse Pulse Resp BP BP 04/27/23 15:29 37.2 C 78 18 107/68 04/27/23 15:05 37 C 83 20 110/68 04/27/23 14:55 84 18 95/64 L 04/27/23 14:45 88 18 114/66 04/27/23 14:35 36.6 C 97 H 12 114/69 04/27/23 11:54 37.9 C H 93 H 16 127/78 04/27/23 07:20 04/27/23 07:16 37.1 C 86 16 115/69 04/26/23 22:36 37.2 C 85 18 118/67 04/26/23 18:18 37.4 C 80 18 129/71 04/26/23 17:26 79 Pulse Ox O2 Del Method O2 Flow Rate 04/27/23 15:29 95 Room Air 04/27/23 15:05 94 Room Air 04/27/23 14:55 96 Room Air 04/27/23 14:45 97 Oxymask 6 04/27/23 14:35 93 Oxymask 8 04/27/23 11:54 96 Room Air 04/27/23 07:20 Room Air 04/27/23 07:16 95 Room Air 04/26/23 22:36 94 Room Air 04/26/23 18:18 98 Room Air 04/26/23 17:26 Pain Intensity Right Abdomen: Pain Intensity: 3 Transfer of Care Handoff Completed per policy Notes Mental Status: alert / awake / arousable Patient Amnestic to Procedure: Yes Nausea / Vomiting: adequately controlled Pain: adequately controlled Airway Patency, RR, SpO2: stable & adequate BP & HR: stable & adequate Hydration State: stable & adequate Anesthetic Complications: no major complications apparent
[2023-04-27] MEDS: KETOROLAC TROMETHAMINE 15 MG/ML VIAL IV SCH ×2 (16:00→21:57)
[2023-04-27] MEDS: cefTRIAXone SODIUM 2,000 MG in DEXTROSE 5 % MINI-B 50 ML IV SCH (18:38)
[2023-04-28] MEDS: D5NSS + 20MEQ KCL 20 MEQ/1,000 ML BAG IV SCH ×2 (03:02→13:43)
[2023-04-28] MEDS: metroNIDAZOLE 500 MG/100 ML BAG IV SCH ×3 (03:03→18:22)
[2023-04-28] MEDS: KETOROLAC TROMETHAMINE 15 MG/ML VIAL IV SCH ×2 (05:19→13:43)
--- NOTE | 2023-04-28 05:48 | Surgery Progress Note ---
Date of Service April 28, 2023 Assessment & Plan (1) Acute cholecystitis: Plan: Status post laparoscopic cholecystectomy on 04/27/2023 (postop day #1) Continue analgesics as needed Continue antiemetics as needed Continue antibiotics in the form of Rocephin and Flagyl while hospitalized Continue IV fluids until oral intake deemed reliable Patient has thus far tolerated clear liquids so consideration be given to further advancing diet Continue YOLIE drain to bulb suction Mobilize as able Encourage use of incentive spirometer Check a.m. labs when available Admission and Anticipated Discharge Date Admission Date: April 26, 2023 Supervising Physician Co-Signing Physician Notes Patient seen and examined, labs reviewed, agree with above. POD #1 robotic cholecystectomy for what appeared to be gangrenous cholecystitis. Feeling much better today, sore at his extraction site incision. Pain from prior to surgery is gone. On exam he is afebrile stable vitals. Abdomen soft, appropriately tender to palpation, right upper quadrant pain gone. Labs with normal white count and downtrending LFTs. Will advance diet, plan to remove drain prior to discharge, potential discharge in next 24 hours. Continue IV antibiotics for now. Subjective Patient is currently resting comfortably in bed. He notes the right upper quadrant pain he was experiencing prior to surgery has improved and now his pain appears to be postoperative incisional pain. Patient says that he tolerated clear liquids last night without any nausea or vomiting or worsening abdominal pain. He notes that he is passing flatus. He also notes he is voiding without difficulty. Physical Exam Gastrointestinal (Abdomen): Abdomen is soft and nondistended. Surgical incisions are clean, dry, and intact. YOLIE drain is in place draining serosanguineous fluid and is drained 325 cc since surgery. Patient has appropriate pain near surgical incisions. Results & Data Vital Signs (Past 12 Hours) Vital Signs Temp Pulse Resp BP Pulse Ox O2 Del Method 04/28/23 03:30 37.1 C 72 18 103/64 96 Room Air 04/27/23 22:40 37.5 C 78 16 118/68 98 Room Air 04/27/23 18:37 82 18 113/75 97 Room Air PG Care Time/CCT Total # of Minutes Spent Total Time Spent with Patient: Total time spent is greater than 50% in coordination of care (as documented) at patient's floor/unit and/or counseling patient: Coding Level of Care Code 04248 Post Operative Follow-Up Diagnoses Acute cholecystitis K81.0
[2023-04-28 09:47] LABS: Basophils # (auto) 0.01 K/uL (0.00-0.20); Basophils % (auto) 0.1 %; Eosinophils # (auto) 0.01 K/uL (0.00-0.50); Eosinophils % (auto) 0.1 %; Hematocrit (blood only) 35.1 % (42.0-52.0); Hemoglobin 11.5 g/dl (14.0-18.0); Immature Granulocytes # (auto) 0.04 K/uL (0.01-0.20); Immature Granulocytes % (auto) 0.4 %; Lymphocytes # (auto) 1.05 K/uL (1.20-3.40); Lymphocytes % (auto) 10.5 %; Mean Corpuscular Hemoglobin 28.7 pg (25.0-34.0); Mean Corpuscular Hgb Conc 32.8 g/dL (32.0-36.0); Mean Corpuscular Volume 87.5 fL (80.0-100.0); Mean Platelet Volume 10.3 fL (9.4-12.4); Monocytes # (auto) 0.85 K/uL (0.11-0.59); Monocytes % (auto) 8.5 %; Neutrophils # (auto) 8.02 K/uL (1.40-6.50); Neutrophils % (auto) 80.4 %; Platelet Count 134 K/uL (130-400); RDW Coefficient of Variation 12.8 % (11.5-14.5); RDW Standard Deviation 41.1 fL (36.4-46.3); Red Blood Count 4.01 M/uL (4.70-6.10); White Blood Count 9.98 K/ul (4.8-10.8)
[2023-04-28 10:08] LABS: Albumin Globulin Ratio 1.5 (0.9-2); Albumin Level 3.2 gm/dl (3.4-5.0); BUN Creatinine Ratio 14.7 (10-20); Calcium 8.2 mg/dl (8.6-10.3); Creatinine Clr Calc Pharmacy 161.5 ml/min; Est GFR (African American) 143.4 ml/min; Est GFR (Non-African American) 123.7 ml/min; Globulin 2.1 gm/dl (2.5-4.0); Potassium 4.1 mmol/L (3.5-5.1); Total Protein 5.3 gm/dl (6.0-8.3)
--- NOTE | 2023-04-28 13:16 | Hospitalist Progress Note ---
Date of Service April 28, 2023 Assessment & Plan (1) Acute cholecystitis: Plan: Patient presented with right upper quadrant abdominal pain, nausea and vomiting for 1 day Febrile to Tmax 37.9 C CBC remarkable for leukocytosis CT abdomen pelvis personally reviewed; findings concerning for acute cholecystitis. Right upper quadrant shows acute cholecystitis with a gallstone in gallbladder neck and gallbladder sludge Status post laparoscopic cholecystectomy on April 27, 2023 Liver enzymes elevated but down trended after surgery BUN/creatinine within normal limits Advance diet as tolerated as per surgery. Drain management as per surgery. Continue on ceftriaxone and Flagyl Pain control with IV Tylenol, oxycodone and morphine DVT prophylaxisSCDs Full code Dispositionpatient recovering from laparoscopic cholecystectomy. Plan is to advance diet today. Patient still has drain in place. Possible DC in next 24 hours. Please note the above document was generated using voice recognition software. It may contain grammatical, syntax or spelling errors. Any formal questions or concerns about the content, text or information contained within the body of this dictation should be directly addressed to the provider for clarification Admission and Anticipated Discharge Date Admission Date: April 26, 2023 Subjective Patient seen and examined at bedside. He reports that pain has significantly improved. Reports tenderness at the surgical site. Physical Exam Physical Exam: Constitutional: Alert orient x 3, in significant distress due to pain. Respiratory: normal respiratory effort, lungs clear to auscultation, no wheeze, rales, rhonchi. Normal insp/exp effort, no accessory muscle use Cardiovascular: RRR, no murmur, no edema Vessels: no JVD or carotid bruit Chest: normal inspection of chest Abdomen: Surgical site clean and dry. Drain in place with serosanguineous output Musculoskeletal: no cyanosis or clubbing, extremities motor strength 5/5 Skin: no rashes, warm and dry normal turgor Neurologic: PERRL, EOMI, accommodation nl, no face palsy, no dysarthria CN's II- XI intact bilaterally and moves all extremities Psychiatric: A+Ox3, euthymic affect Results & Data Results & Data Vital Signs (Past 12 Hours) Vital Signs Temp Pulse Resp BP Pulse Ox O2 Del Method 04/28/23 07:22 36.6 C 75 18 118/75 96 Room Air 04/28/23 03:30 37.1 C 72 18 103/64 96 Room Air Laboratory Results Laboratory Results WBC 9.98 K/ul (4.8-10.8) 04/28/23 09:19 RBC 4.01 M/uL (4.70-6.10) L 04/28/23 09:19 Hgb 11.5 g/dl (14.0-18.0) L 04/28/23 09:19 Hct 35.1 % (42.0-52.0) L 04/28/23 09:19 MCV 87.5 fL (80.0-100.0) 04/28/23 09:19 MCH 28.7 pg (25.0-34.0) 04/28/23 09:19 MCHC 32.8 g/dL (32.0-36.0) 04/28/23 09:19 RDW Std Deviation 41.1 fL (36.4-46.3) 04/28/23 09:19 RDW Coeff of Naomie 12.8 % (11.5-14.5) 04/28/23 09:19 Plt Count 134 K/uL (130-400) 04/28/23 09:19 MPV 10.3 fL (9.4-12.4) 04/28/23 09:19 Immature Gran % (Auto) 0.4 % 04/28/23 09:19 Neut % (Auto) 80.4 % 04/28/23 09:19 Lymph % (Auto) 10.5 % 04/28/23 09:19 [place] % (Auto) 8.5 % 04/28/23 09:19 Eos % (Auto) 0.1 % 04/28/23 09:19 Baso % (Auto) 0.1 % 04/28/23 09:19 Neut # (Auto) 8.02 K/uL (1.40-6.50) H 04/28/23 09:19 Lymph # (Auto) 1.05 K/uL (1.20-3.40) L 04/28/23 09:19 [place] # (Auto) 0.85 K/uL (0.11-0.59) H 04/28/23 09:19 Eos # (Auto) 0.01 K/uL (0.00-0.50) 04/28/23 09:19 Baso # (Auto) 0.01 K/uL (0.00-0.20) 04/28/23 09:19 Immature Gran # (Auto) 0.04 K/uL (0.01-0.20) 04/28/23 09:19 PT 13.2 Seconds (9.0-12.0) H 04/27/23 06:21 INR 1.2 (0.9-1.1) H 04/27/23 06:21 Sodium 138 mmol/L (136-145) 04/28/23 09:19 Potassium 4.1 mmol/L (3.5-5.1) 04/28/23 09:19 Chloride 108 mmol/L (98-107) H 04/28/23 09:19 Carbon Dioxide 29 mmol/L (21-32) 04/28/23 09:19 Anion Gap 1 (3-11) L 04/28/23 09:19 BUN 10 mg/dl (6-23) 04/28/23 09:19 Creatinine 0.68 mg/dl (0.6-1.4) 04/28/23 09:19 Est Cr Clr Drug Dosing 161.5 ml/min 04/28/23 09:19 Est GFR ( Amer) 143.4 ml/min 04/28/23 09:19 Est GFR (Non-Af Amer) 123.7 ml/min 04/28/23 09:19 BUN/Creatinine Ratio 14.7 (10-20) 04/28/23 09:19 Glucose 145 mg/dl (70-99(Fasting)) H 04/28/23 09:19 Calcium 8.2 mg/dl (8.6-10.3) L 04/28/23 09:19 Total Bilirubin 1.0 mg/dl (0.2-1.0) D 04/28/23 09:19 Direct Bilirubin 0.6 mg/dl (0-0.2) H 04/27/23 06:21 AST 76 U/L (13-39) H 04/28/23 09:19 ALT 173 U/L (7-52) H 04/28/23 09:19 Alkaline Phosphatase 59 U/L (34-104) 04/28/23 09:19 Total Protein 5.3 gm/dl (6.0-8.3) L 04/28/23 09:19 Albumin 3.2 gm/dl (3.4-5.0) L 04/28/23 09:19 Globulin 2.1 gm/dl (2.5-4.0) L 04/28/23 09:19 Albumin/Globulin Ratio 1.5 (0.9-2) 04/28/23 09:19 Lipase 23 U/L (11-82) 04/27/23 06:21 Urine Color Yellow 04/26/23 13:57 Urine Appearance Clear (Clear) 04/26/23 13:57 Urine pH 6.0 (4.5-7.5) 04/26/23 13:57 Ur Specific [place] 1.042 (1.000-1.030) H 04/26/23 13:57 Urine Protein Negative (Negative) 04/26/23 13:57 Urine Glucose (UA) Negative (Negative) 04/26/23 13:57 Urine Ketones 4+ (Negative) H 04/26/23 13:57 Urine Blood Negative (Negative) 04/26/23 13:57 Urine Nitrite Negative (Negative) 04/26/23 13:57 Urine Bilirubin Negative (Negative) 04/26/23 13:57 Urine Urobilinogen Negative (Negative) 04/26/23 13:57 Ur Leukocyte Esterase Negative (Negative) 04/26/23 13:57 Nasal Screen MRSA (PCR) Negative (Negative) 04/26/23 18:30 SARS-CoV-2, RNA, NAAT NEGATIVE (NEGATIVE) 04/26/23 16:17 Impressions Abdomen/Pelvis CT 04/26/23 12:19 CT abd pelvis IV con only CLINICAL HISTORY: rlq pain TECHNIQUE: Helical axial images of the abdomen and pelvis were obtained and displayed. Automated dose lowering techniques and/or adjustment according to patient size were utilized for this exam. This exam was performed with intravenous contrast. CT DOSE: 963.05 mGy.cm COMPARISON: None available at the time of this dictation. FINDINGS: Lower chest: No acute abnormality. Liver: Unremarkable. No focal lesions are seen. Gallbladder and biliary tree: Prominence of the gallbladder wall with hyperdense gallbladder contents. The gallbladder wall appears dilated but difficult to measure. There is a 11 x 18 mm nodular density adjacent to the gallbladder. No intra- or extrahepatic biliary ductal dilation. Pancreas: Unremarkable, no focal lesions. Spleen: Splenule is incidentally noted. Adrenals: Unremarkable. Kidneys and ureters: Unremarkable. Bladder: Unremarkable. Reproductive organs: Prostatic calcifications are seen which may represent prior hemorrhage or granulomatous disease. Bowel: The appendix is not well-visualized, however no secondary signs for appendicitis are seen. Lymph nodes Retroperitoneal: Unremarkable. Pelvic: Unremarkable. Mesenteric: Unremarkable. Peritoneum: Normal. Vessels: Unremarkable. Abdominal wall: Unremarkable. Bones: Unremarkable. IMPRESSION: Findings are concerning for acute cholecystitis, possibly acalculous cholecystitis with gallbladder sludge. Attention on gallbladder ultrasound which has already been ordered. Adjacent nodular density may represent a pema hepatis lymph node, dropped stone cannot be entirely excluded. ACT 112: Negative or not required by law. Electronically signed by: Goyo Leach M.D. 04/26/2023 2:13 PM Gallbladder Ultrasound 04/26/23 12:26 US gallbladder CLINICAL HISTORY: ruq pain TECHNIQUE: Multiple real-time sonographic images of the right upper quadrant were obtained. Comparison: Comparison is made to CT abdomen 04/26/2023 FINDINGS: The liver is diffusely homogenous with normal contour and echogenicity. No focal mass lesions are seen. No intrahepatic ductal dilatation is seen. A stone is in the gallbladder neck measuring 2.6 cm. There is prominent gallbladder heterogeneous contents likely representing sludge. Gallbladder wall measures 9 mm. A sonographic Livingston's sign was elicited by the em physician. The common duct measures 0.4 cm in diameter at the level of the hepatic artery. The visualized portions of the pancreas appear normal. The right kidney shows normal echogenicity, cortical thickness and renal contour. The right kidney shows no evidence of hydronephrosis or mass. No ascites or free fluid is seen in Gaming's pouch. IMPRESSION: Findings compatible with acute cholecystitis with a stone in the gallbladder neck and gallbladder sludge. No gallbladder perforation was ultrasonically visualized. ACT 112: Negative or not required by law. Electronically signed by: Goyo Leach M.D. 04/26/2023 3:36 PM
[2023-04-28] MEDS: cefTRIAXone SODIUM 2,000 MG in DEXTROSE 5 % MINI-B 50 ML IV SCH (19:17)
[2023-04-28] MEDS: ACETAMINOPHEN 325 MG TAB PO PRN (22:14)
[2023-04-29] MEDS: D5NSS + 20MEQ KCL 20 MEQ/1,000 ML BAG IV SCH (00:09)
[2023-04-29] MEDS: metroNIDAZOLE 500 MG/100 ML BAG IV SCH ×2 (03:23→12:31)
[2023-04-29] MEDS: ACETAMINOPHEN 325 MG TAB PO PRN (04:22)
--- NOTE | 2023-04-29 05:10 | Surgery Progress Note ---
Date of Service April 29, 2023 Assessment & Plan (1) Acute cholecystitis: Plan: Status post laparoscopic cholecystectomy on 04/27/2023 (postop day #2) Continue analgesics as needed Continue antiemetics as needed Continue antibiotics in the form of Rocephin and Flagyl while hospitalized Continue diet as tolerated As patient is tolerating solid diet we will discontinue his intravenous fluids at this time Continue YOLIE drain to bulb suction Continue to mobilize as able Encourage use of incentive spirometer Check a.m. labs when available Admission and Anticipated Discharge Date Admission Date: April 28, 2023 Supervising Physician Co-Signing Physician Notes Patient seen and examined, labs reviewed, agree with above. POD #2 robotic cholecystectomy for severe acute cholecystitis. Tolerating diet, pain controlled, symptoms from prior to surgery are gone. Afebrile with stable tommy ls, incisions without infection. YOLIE serosanguineous. LFTs downtrending, bilirubin normalized, WBC normal. Will DC drain and DC to home, wound care instructions, activity restrictions, return precautions given, call with questions or concerns. Follow-up as needed in the general surgery clinic Subjective Patient notes he continues to improve since his surgery. He does report some incisional pain and some minor pain in the right upper quadrant but this is markedly improved since his surgery. He has not had a bowel movement since surgery but he is passing flatus. He is tolerating solid food without any exacerbation of abdominal pain or nausea or vomiting. He denies any fevers, shakes, or chills. He is voiding without difficulty Physical Exam Gastrointestinal (Abdomen): Abdomen is soft and nondistended. It is nonrigid. Surgical incisions are clean, dry, and intact. He has a YOLIE drain in place draining serosanguineous fluid and is drained approximate 60 cc over the past shift. Results & Data Vital Signs (Past 12 Hours) Vital Signs Temp Pulse Resp BP Pulse Ox O2 Del Method 04/28/23 21:43 36.9 C 84 16 121/73 96 Room Air PG Care Time/CCT Total # of Minutes Spent Total Time Spent with Patient: Total time spent is greater than 50% in coordination of care (as documented) at patient's floor/unit and/or counseling patient: Coding Level of Care Code None Diagnoses Acute cholecystitis K81.0
[2023-04-29 08:06] LABS: Basophils # (auto) 0.03 K/uL (0.00-0.20); Basophils % (auto) 0.4 %; Eosinophils # (auto) 0.08 K/uL (0.00-0.50); Hematocrit (blood only) 36.5 % (42.0-52.0); Immature Granulocytes # (auto) 0.02 K/uL (0.01-0.20); Immature Granulocytes % (auto) 0.3 %; Lymphocytes # (auto) 1.39 K/uL (1.20-3.40); Lymphocytes % (auto) 18.2 %; Mean Corpuscular Hemoglobin 28.6 pg (25.0-34.0); Mean Corpuscular Hgb Conc 32.9 g/dL (32.0-36.0); Mean Corpuscular Volume 86.9 fL (80.0-100.0); Mean Platelet Volume 10.1 fL (9.4-12.4); Monocytes # (auto) 0.62 K/uL (0.11-0.59); Monocytes % (auto) 8.1 %; Platelet Count 161 K/uL (130-400); RDW Coefficient of Variation 13.2 % (11.5-14.5); RDW Standard Deviation 41.8 fL (36.4-46.3); White Blood Count 7.64 K/ul (4.8-10.8)
[2023-04-29 08:32] LABS: Alanine Aminotransferase 133 U/L (7-52); Albumin Globulin Ratio 1.4 (0.9-2); Albumin Level 3.3 gm/dl (3.4-5.0); Alkaline Phosphatase 58 U/L (34-104); Anion Gap 3 (3-11); Aspartate Aminotransferase 42 U/L (13-39); BUN Creatinine Ratio 15.3 (10-20); Bilirubin,Total 0.9 mg/dl (0.2-1.0); Blood Urea Nitrogen 9 mg/dl (6-23); Calcium 8.4 mg/dl (8.6-10.3); Carbon Dioxide 26 mmol/L (21-32); Chloride 109 mmol/L (98-107); Creatinine Clr Calc Pharmacy 186.1 ml/min; Est GFR (African American) > 150.0 ml/min; Est GFR (Non-African American) 131.2 ml/min; Globulin 2.4 gm/dl (2.5-4.0); Glucose 92 mg/dl (70-99(Fasting)); Potassium 3.9 mmol/L (3.5-5.1); Sodium 138 mmol/L (136-145); Total Protein 5.7 gm/dl (6.0-8.3)
[2023-04-29] MEDS ORDERED: CIPROFLOXACIN 500MG HOME PACK PO ONE (11:03)
[2023-04-29] MEDS ORDERED: metroNIDAZOLE 500 MG TAB PO SCH ×3 (14:00)
--- NOTE | 2023-04-29 14:31 | Discharge Summary ---
Date of Service April 29, 2023 Admission HPI Per Admitting Provider Patient is a 37-year-old male with no known past medical history presented to the ED with right upper quadrant abdominal pain. Patient also reports nausea and vomiting for several times since then. Patient denies fever, chills, chest pain or shortness of breath. No prior history of abdominal surgeries or previous hospitalization. On presentation to the ED, patient was afebrile, normotensive and saturating well on room air CBC remarkable for leukocytosis Total bilirubin elevated to 1.7, LFTs within normal limits. BUN/creatinine within normal limits Urine positive for ketones CT abdomen pelvis personally reviewed; findings concerning for acute cholecystitis. Right upper quadrant shows acute cholecystitis with a gallstone in gallbladder neck and gallbladder sludge Discussion was done with on-call surgeon; plan to be admitted to medical service with possible surgery tomorrow AM. Past medical history; none Past surgical history; tendon repair on right hand. No abdominal medical history history Social history; ex-smoker, does not drink Family history; no pertinent family history Admission Exam Per Admitting Provider Constitutional: Alert oriented x3; not in distress Respiratory: normal respiratory effort, lungs clear to auscultation, no wheeze, rales, rhonchi. Normal insp/exp effort, no accessory muscle use Cardiovascular: RRR, no murmur, no edema Vessels: no JVD or carotid bruit Chest: normal inspection of chest Abdomen: Right upper quadrant tenderness present. Livingston sign present Musculoskeletal: no cyanosis or clubbing, extremities motor strength 5/5 Skin: no rashes, warm and dry normal turgor Neurologic: PERRL, EOMI, accommodation nl, no face palsy, no dysarthria CN's II- XI intact bilaterally and moves all extremities Psychiatric: A+Ox3, euthymic affect Principal Diagnosis Acute cholecystitis status post laparoscopic cholecystectomy Discharge Exam Constitutional: Alert orient x 3, in significant distress due to pain. Respiratory: normal respiratory effort, lungs clear to auscultation, no wheeze, rales, rhonchi. Normal insp/exp effort, no accessory muscle use Cardiovascular: RRR, no murmur, no edema Vessels: no JVD or carotid bruit Chest: normal inspection of chest Abdomen: Surgical site clean and dry. Drain in place with serosanguineous output Musculoskeletal: no cyanosis or clubbing, extremities motor strength 5/5 Skin: no rashes, warm and dry normal turgor Neurologic: PERRL, EOMI, accommodation nl, no face palsy, no dysarthria CN's II- XI intact bilaterally and moves all extremities Psychiatric: A+Ox3, euthymic affect Discharge Data Allergies Allergy/AdvReac Type Severity Reaction Status Date / Time No Known Allergies Allergy Unverified 04/26/23 16:05 Consultations 04/26/23 15:53 ED Decision to Admit Stat 04/26/23 18:07 Consult General Surgery Routine Procedures Performed Operation Date: 04/27/23 07:00 Actual Procedures p Robotic Assisted Laparoscopic Cholecystectomy(Not Applicable) - Tripp Dave, DO, FACS Ordered Studies 04/26/23 12:19 CT abd pelvis IV con only Stat 04/26/23 12:26 US gallbladder Stat Hospital Course (1) Acute cholecystitis: Patient presented with right upper quadrant abdominal pain, nausea and vomiting for 1 day Febrile to Tmax 37.9 C CBC remarkable for leukocytosis CT abdomen pelvis personally reviewed; findings concerning for acute cholecystitis. Right upper quadrant showed acute cholecystitis with a gallstone in gallbladder neck and gallbladder sludge Status post laparoscopic cholecystectomy on April 27, 2023 Liver enzymes elevated but down trended after surgery BUN/creatinine within normal limits Patient's postoperative uterus unremarkable. Drain was taken out 24 hours after the surgery Patient tolerated diet and he also had a bowel movement. [facility] days of [facility]. Discharge instruction given to medical [facility]. Please note the above document was generated using voice recognition software. It may contain grammatical, syntax or spelling errors. Any formal questions or concerns about the content, text or information contained within the body of this dictation should be directly addressed to the provider for clarification Total Time Total Time Spent Total Time Spent (In Minutes): 45 Total Time Includes: Examination of the Patient, Discharge Planning, Medication Reconciliation, Communication With Other Providers and Other Discharge Plan Discharge Items [facility] Reason For Visit: ACUTE CHOLECYSTITIS Discharge Diagnosis: Acute cholecystitis Condition on Discharge: Fair Activity: As commented below Activity Comment: No heavy lifting or strenuous activity for 2 to 3-week Lifting Comment: No lifting greater than 20 pounds for 2 to 3 weeks Bathing Comment: May shower, do not soak or scrub wound for 2-week Exercise/Sports: Gradually increase as tolerated Exercise Comment: No strenuous activity for 2-week Non-emergency contact: Primary Care Provider and Surgeon Call non-emergency contact if: you have any medication questions, your pain is worsening, your temperature is above 101.5 and your wound has increased redness Follow-up/Referrals: Tripp Dave, ZOLTAN CROWLEY [Physician] - (Please call office for to arrange a follow-up appointment in 1-2 weeks) Leticia LAROSE [Primary Care Provider] - Diet: Regular Addtl Attending Provider Instructions: Call [facility] general surgery office with any questions/concerns You will require ciprofloxacin 500 twice daily and Flagyl 3 times a day for 4 days. Take Tylenol as as needed for pain control Pending Studies at Discharge: Yes Studies:: Surgical pathology Stand-Alone Forms: My [facility] Skilled Items Patient informed of condition?: Yes Discharge Level of Care: Other Communicable Disease: No Discharge Prognosis: Improving Lines: None Urinary Catheter: No Medications and DC Order Prescriptions: New ciprofloxacin HCl 500 mg tablet 500 mg PO BID 4 Days Qty: 8 0RF metronidazole 500 mg tablet 500 mg PO Q8H Qty: 4 0RF acetaminophen 325 mg Tablet 650 mg PO Q6H PRN (Reason: fever or pain) Qty: 30 0RF Discontinued alum-mag hydroxide-simeth [Christine-Lanta] 200-200-20 mg/5 mL Suspension 30 ml PO DAILY Rx Instructions: administer between meals and at bedtime promethazine 25 mg/mL Syringe 25 mg IM DAILY Discharge Orders: Discharge Order (Routine); Ordered 04/29/23 Ordered By: Kemal Siddiqi Admission Data Admit Date/Time: 04/28/23 13:38 Attending Provider: Kemal Siddiqi Admit Provider: Kemal Siddiqi Primary Care Provider: Leticia LAROSE Other Providers: Kemal Siddiqi; Tripp Dave Other Interventions: Discharge Summary Assessment (RN) Last Done: 04/29/23 11:40
== END 2023-04-29 13:14 | DRG 419 ==
LOC: 3E 12:01 → ED 12:01 → 3E 17:50
DX: K80.00 Calculus of gallbladder with acute cholecystitis without obstruction